=== PATIENT | female | born 1995 | race Caucasian/White ===

== ENCOUNTER → 2017-10-05 | Outpatient (CLI) | payer BC ==
[~2017-10-05] MED LIST: BIRTH CONTROL; CEPHALEXIN500 M1 PO; CLARITIN10 MG PO; NASONEX0.05 MG/AC NS; NORCO 325 MG-51 TAB PO; NORCO 325 MG-7.1 TAB PO; PHENERGAN 25 TA25 MG PO; TOPAMAX25 M1 PO; ZOFRAN 4MG T4 MG/TAB PO; [UNRECOGNIZED DRUG - OTHER]
[2017-10-06 14:41] LABS: BASO % 0.5 % (0.0-2.0); EOS # 0.1 (0.0-0.7); EOS % 1.5 % (0-4.0); GRAN % 52.8 % (42.2-75.2); HEMATOCRIT 39.7 % (37.0-47.0); HEMOGLOBIN 12.6 g/dl (12.5-16.0); LYMPH # 2.7 (1.2-3.4); LYMPH % 35.5 % (20.0-51.0); MEAN CELL VOLUME 85 fl (80.0-100.0); MEAN CORPUSCULAR HEMOGLOBIN 27 pg (27.0-31.0); MEAN CORPUSCULAR HGB CONC 32 g/dl (33.0-37.0); MEAN PLATELET VOLUME 11.4 fl (7.4-10.4); MONO # 0.7 (0.1-0.6); MONO % 9.4 % (1.7-9.3); PLATELET COUNT 284 K/mm3 (130-400); WHITE BLOOD COUNT 7.5 K/mm3 (4.8-10.8)
[2017-10-06 14:48] LABS: ADJUSTED CALCIUM 9.3 mg/dL (8.4-10.2); ALBUMIN 4.5 gm/dL (3.5-5.0); BILIRUBIN,TOTAL 0.9 mg/dL (0.0-1.0); CALCIUM 9.7 mg/dL (8.4-10.2); CHOLESTEROL RISK RATIO 2.8; CREATININE, serum 0.79 mg/dL (0.52-1.25); POTASSIUM 3.9 mmol/L (3.4-5.0); TOTAL PROTEIN 7.3 gm/dL (6.4-8.2)
[2017-10-06 15:17] LABS: TSH w REFLEX 1.63 uIU/mL (0.465-4.680)
== END ==
LOC: COL.LAB 17:08
PROVIDERS: Family Medicine
DX: Z01.419 Encounter for gynecological examination (general) (routine) without abnormal findings (principal)

== ENCOUNTER → 2018-01-30 | Outpatient (CLI) | payer BC ==
[2018-01-30 17:01] LABS: CHOLESTEROL RISK RATIO 3.4
== END ==
LOC: COL.LAB 15:35
PROVIDERS: Family Medicine
DX: Z01.89 Encounter for other specified special examinations (principal)

== ENCOUNTER → 2018-02-15 | Outpatient (CLI) | payer BC | LOC: COL.LAB 09:20 | DX: N91.2 Amenorrhea, unspecified (principal) ==

== ENCOUNTER 2019-04-25 11:34 | Emergency (ER) | payer BC ==
[~2019-04-25] VITALS: Ht 175.3 cm; Wt 65.9 kg
[2019-04-25 11:40] VITALS: BP 119/77; TEMP 98.1
[2019-04-25 13:10] VITALS: PULSE 64
== END 2019-04-25 13:10 | disposition home or self-care (01) ==
LOC: COL.ER 11:34
DX: S09.90XA Unspecified injury of head, initial encounter (principal); S00.03XA Contusion of scalp, initial encounter; W20.8XXA Other cause of strike by thrown, projected or falling object, initial encounter; Y92.009 Unspecified place in unspecified non-institutional (private) residence as the place of occurrence of the external cause; R40.2412 Glasgow coma scale score 13-15, at arrival to emergency department
CPT/HCPCS: J1885

== ENCOUNTER 2021-04-21 14:43 | Inpatient (IN) | payer BC ==
[2021-04-21] VITALS (13 sets, daily range): BP systolic 86–118; BP diastolic 33–70; PULSE 66–95; TEMP 97–98
[~2021-04-21] VITALS: Ht 175.4 cm; Wt 92.7 kg
[2021-04-21] MEDS ORDERED: SINGULAIR 110 MG/TAB PO (15:45)
[2021-04-21] MEDS ORDERED: NATURAL IRON65 MG (15:46)
[2021-04-21] MEDS ORDERED: BENADRYL25 M2 PO (15:46)
[2021-04-21] MEDS ORDERED: PROTONIX 40MG T40 MG PO (15:46)
[2021-04-21] MEDS ORDERED: PRENATAL TABLET PO (15:46)
[2021-04-21 15:50] LABS: HEMOGLOBIN 10.4 g/dl (12.5-16.0); MEAN CELL VOLUME 80 fl (80.0-100.0); MEAN CORPUSCULAR HEMOGLOBIN 26 pg (27.0-31.0); MEAN CORPUSCULAR HGB CONC 32 g/dl (33.0-37.0); MEAN PLATELET VOLUME 10.4 fl (7.4-10.4); PLATELET COUNT 243 K/mm3 (130-400); RED BLOOD COUNT 4.03 M/mm3 (4.10-5.30); REDCELL DISTRIBUTION WIDTH-CV 17.2 % (11.5-14.5)
[2021-04-21 15:59] LABS: HEMATOCRIT 32.4 % (37.0-47.0)
[2021-04-21 17:48] LABS: BAND 1 % (0-10); LYMPHOCYTE 14 % (20.0-51.0); METAMYELOCYTE 1 % (0-0); NEUTROPHILS 77 % (42.0-75.2); PLATELET ESTIMATE NORMAL (NORMAL)
[2021-04-21 17:52] LABS: ANISOCYTOSIS 1+
[2021-04-21 17:53] LABS: HYPOCHROMIA 1+
--- NOTE | 2021-04-22 00:03 | NUR ---
BABY HAS NOT BEEN ABLE TO BRST. FEED- MOM'S NIPPLES ARE FLAT BUT ABLE TO PINCH AND STUFF, BUT BABY IS NOT ABLE TO LATCH ON.
[2021-04-22 00:32] VITALS: BP 117/56; PULSE 83; TEMP 98.1
[2021-04-22 04:30] VITALS: BP 108/62; PULSE 69; TEMP 97.7
[2021-04-22 07:15] VITALS: BP 99/47; PULSE 83; TEMP 98.3
--- NOTE | 2021-04-22 09:13 | NUR ---
Initial visit; Parents thanied Profiler for offering congratulations and God's blessings for the of their daughter. Profiler thanked family for choosing [facility].
[2021-04-22 12:30] VITALS: BP 111/57; PULSE 69; TEMP 98.7
[2021-04-22 16:09] VITALS: BP 99/66; PULSE 71; TEMP 98.5
[2021-04-22 22:00] VITALS: BP 104/66; PULSE 71; TEMP 97.6
[2021-04-23 06:50] VITALS: BP 108/68; PULSE 74; TEMP 98
[2021-04-23] MEDS ORDERED: PERCOCET 325 MG1 TA2 PO (09:30)
[2021-04-23] MEDS ORDERED: IBU600 MG PO (09:30)
[2021-04-23 16:24] VITALS: BP 110/68; PULSE 75; TEMP 97.8
[2021-04-23 20:00] VITALS: BP 115/63; PULSE 71; TEMP 98.1
[2021-04-24 08:43] VITALS: BP 108/70; PULSE 66; TEMP 97.6
== END 2021-04-24 13:40 | disposition home or self-care (01) | DRG 787 ==
LOC: OB 14:43
PROVIDERS: ADMIT Obstetrics & Gynecology
PROC: 10D00Z1 Extraction of Products of Conception, Low, Open Approach (ICD-10-PCS; principal; 2021-04-21)
DX: O32.1XX0 Maternal care for breech presentation, not applicable or unspecified (principal); O41.03X0 Oligohydramnios, third trimester, not applicable or unspecified; O99.02 Anemia complicating childbirth; Z3A.37 37 weeks gestation of pregnancy; Z37.0 Single live birth; D64.9 Anemia, unspecified
CPT/HCPCS: J0690; J1100; J1885; J2590; J2765; J3010; J7120

== ENCOUNTER → 2022-05-10 | Outpatient (CLI) | payer BC ==
[~2022-05-10] MED LIST changes: +BENADRYL25 M2 PO; +IBU600 MG PO; +NATURAL IRON65 MG; +PERCOCET 325 MG1 TA2 PO; +PRENATAL TABLET PO; +PROTONIX 40MG T40 MG PO; +SINGULAIR 110 MG/TAB PO
== END ==
LOC: COL.RAD 07:22
DX: K21.9 Gastro-esophageal reflux disease without esophagitis (principal); R14.2 Eructation
CPT/HCPCS: A9541

== ENCOUNTER 2024-02-07 05:14 | Inpatient (IN) | payer BC ==
[~2024-02-07] VITALS: Ht 174 cm; Wt 95.9 kg
[2024-02-07] VITALS (19 sets, daily range): BP systolic 110–151; BP diastolic 47–93; PULSE 62–84; TEMP 97.9–98.8
--- NOTE | 2024-02-07 05:20 | NUR ---
Pt arrives to unit ambulatory for scheduled section. Pt oriented to room, call light within reach, bed in low and locked position. Clean gown on. US and toco explained and applied. Vitals obtained. 18G IV started in left hand. Lactated ringers bolus infusing to gravity. Consents reviewed and signed.
[2024-02-07] MEDS ORDERED: LR 1,000 ML IV SCH (05:30)
[2024-02-07 06:20] LABS: BASO % 0.3 % (0.0-2.0); EOS # 0.1 K/mm3 (0.0-0.7); EOS % 0.4 % (0.0-4.0); GRAN # 7.8 K/mm3 (1.4-6.5); GRAN % 69.3 % (42.2-75.2); HEMOGLOBIN 11.2 g/dl (12.5-16.0); LYMPH # 2.2 K/mm3 (1.2-3.4); LYMPH % 19.1 % (20.0-51.0); MEAN CELL VOLUME 84 fl (80.0-100.0); MEAN CORPUSCULAR HEMOGLOBIN 27 pg (27-31); MEAN CORPUSCULAR HGB CONC 33 g/dl (33.0-37.0); MEAN PLATELET VOLUME 10.9 fl (7.4-10.4); MONO # 1.1 K/mm3 (0.1-0.6); MONO % 9.7 % (1.7-9.3); PLATELET COUNT 223 K/mm3 (130-400); RED BLOOD COUNT 4.13 M/mm3 (4.10-5.30)
[2024-02-07 06:31] LABS: HEMATOCRIT 34.5 % (37.0-47.0)
[2024-02-07] MEDS ORDERED: Oxytocin 10 UNITS/ML VIAL ONE ×2 (07:20→08:07)
[2024-02-07] MEDS ORDERED: Ketorolac 60 MG/2 ML VIAL IM ONE (07:20)
[2024-02-07] MEDS ORDERED: Phenylephrine 10 MG/ML VIAL ONE (07:20)
[2024-02-07] MEDS ORDERED: dexAMETHasone 10 MG/ML VIAL ONE (07:20)
[2024-02-07] MEDS ORDERED: NS 20 ML IV ONE (07:20)
[2024-02-07] MEDS ORDERED: Ondansetron 4 MG/2 ML VIAL ONE (07:20)
[2024-02-07] MEDS ORDERED: LR 1,000 ML IV ONE ×2 (07:43→08:07)
[2024-02-07] MEDS ORDERED: Meperidine 50 MG/ML 1 ML VIAL ONE (07:47)
[2024-02-07] MEDS ORDERED: Magnes Hydrox (MOM) 80 MG/ML 30 ML CUP PO PRN (08:45)
[2024-02-07] MEDS ORDERED: Acetaminophen 500 MG TAB PO SCH (08:45)
[2024-02-07] MEDS ORDERED: Ondansetron 4 MG/2 ML VIAL IV PRN (08:45)
[2024-02-07] MEDS ORDERED: oxyCODONE 5 MG TAB PO PRN (08:45)
[2024-02-07] MEDS ORDERED: Naloxone 0.4 MG/ML VIAL IV PRN (08:45)
[2024-02-07] MEDS ORDERED: Loratadine 10 MG TAB PO PRN (08:45)
[2024-02-07] MEDS ORDERED: Measles/Mumps/Rubella Virus Vaccine Live w Diluent 0.5 ML VIAL SQ SCH (08:45)
[2024-02-07] MEDS ORDERED: Morphine 4 MG/ML VIAL IV PRN (08:45)
[2024-02-07] MEDS ORDERED: LR 1,000 ML IV PRN (08:45)
--- NOTE | 2024-02-07 09:40 | NUR ---
PT MOVED BACK TO ROOM, PT ALERT AND ORIENTED, PAIN RATING OF 1, SPOUSE BEDSIDE AND SUPPORTIVE. POC DISCUSSED WITH PT AND SPOUSE AND BOTH VERBALIZES UNDERSTANDING AND HAS NO QUESTIONS AT THIS TIME
[2024-02-07] MEDS ORDERED: Ibuprofen 600 MG TAB PO SCH (14:32)
[2024-02-07] MEDS ORDERED: Sennosides/Docusate 8.6-50 MG TAB PO SCH (17:00)
[2024-02-07] MEDS ORDERED: traZODone 50 MG TAB PO PRN (21:00)
[2024-02-08 01:05] VITALS: BP 113/67; PULSE 63; TEMP 98
[2024-02-08 07:00] VITALS: BP 116/68; PULSE 78; TEMP 98.2
[2024-02-08 07:30] VITALS: BP 116/68; PULSE 78; TEMP 98
--- NOTE | 2024-02-08 10:12 | NUR ---
Initial visit; Parents thanked [employer] Machine Offbearer for offering congratulations and God's blessings for the of their son. Desizing Machine Offbearer thanked parents for choosing our hospital and wished them well.
[2024-02-08 16:00] VITALS: BP 120/72; PULSE 77; TEMP 98
[2024-02-08 19:51] VITALS: BP 115/71; PULSE 70; TEMP 98.5
[2024-02-09 07:25] VITALS: BP 118/80; PULSE 73; TEMP 98.2
[2024-02-09] MEDS ORDERED: ROXICODONE 55 MG/TAB PO (07:57)
== END 2024-02-09 13:15 | disposition home or self-care (01) | DRG 788 ==
LOC: OB 05:14
PROVIDERS: ADMIT Obstetrics & Gynecology
PROC: 10D00Z1 Extraction of Products of Conception, Low, Open Approach (ICD-10-PCS; principal; 2024-02-07)
DX: O34.211 Maternal care for low transverse scar from previous cesarean delivery (principal); O99.02 Anemia complicating childbirth; O69.81X0 Labor and delivery complicated by cord around neck, without compression, not applicable or unspecified; K21.9 Gastro-esophageal reflux disease without esophagitis; O99.62 Diseases of the digestive system complicating childbirth; Z37.0 Single live birth; Z3A.39 39 weeks gestation of pregnancy; Z23 Encounter for immunization
CPT/HCPCS: J0690; J1100; J1885; J2175; J2371; J2405; J2590; J7120